=== PATIENT | female | born 1945 | race Caucasian/White ===

== ENCOUNTER → 2019-09-16 | Outpatient (CLI) | payer MEDICARE ==
[2019-07-11 13:30] VITALS: BP 136/93
[~2019-09-16] MED LIST: ONDANSETRON ODT8 MG PO
[2019-09-16 10:11] LABS: BASO # 0.1 (0.02-0.10); EOS # 0.3 (0.04-0.40); EOS % 4.7 % (1.0-5.0); HEMATOCRIT 44.8 % (37.0-47.0); HEMOGLOBIN 14.5 g/dL (12.5-16.0); LYMPH# 1.9 (1.50-4.00); MEAN CELL VOLUME 86 fl (78-100); MEAN CORPUSCULAR HEMOGLOBIN 28 pg (27-31); MEAN CORPUSCULAR HGB CONC 32 g/dL (33-37); MEAN PLATELET VOLUME 10.5 fl (7.4-10.4); MONO # 0.5 (0.20-0.80); NEU # 4.1 (1.40-6.50); PLATELET COUNT 273 K/mm3 (130-400); RED CELL DISTRIBUTION WIDTH 13.7 % (11.5-14.5)
[2019-09-16 10:20] LABS: POTASSIUM 4.2 mmol/L (3.5-5.1)
[2019-09-16 10:21] LABS: ALBUMIN 4.2 g/dL (3.4-4.8)
[2019-09-16 10:22] LABS: CALCIUM 9.7 mg/dL (8.3-10.5)
[2019-09-16 10:23] LABS: TOTAL PROTEIN 7.3 g/dL (6.2-8.1)
[2019-09-16 10:25] LABS: TOTAL BILIRUBIN 0.5 mg/dL (0.2-1.2)
== END ==
LOC: LAB 09:55
PROVIDERS: Family Medicine
DX: Z00.00 Encounter for general adult medical examination without abnormal findings (principal); I10 Essential (primary) hypertension

== ENCOUNTER → 2020-05-26 | Outpatient (CLI) | payer MEDICARE ==
[2019-07-11 13:30] VITALS: BP 136/93
== END ==
LOC: MAMMO 14:25
DX: Z12.31 Encounter for screening mammogram for malignant neoplasm of breast (principal)

== ENCOUNTER → 2020-10-05 | Outpatient (CLI) | payer MEDICARE ==
[2019-07-11 13:30] VITALS: BP 136/93
[2020-10-05 15:41] LABS: BASO # 0.1 (0.02-0.10); EOS # 0.3 (0.04-0.40); HEMOGLOBIN 14.1 g/dL (12.5-16.0); MEAN CELL VOLUME 87 fl (78-100); MEAN CORPUSCULAR HEMOGLOBIN 28 pg (27-31); MEAN CORPUSCULAR HGB CONC 32 g/dL (33-37); MEAN PLATELET VOLUME 10.3 fl (7.4-10.4); MONO # 0.7 (0.20-0.80); NEU # 5.6 (1.40-6.50); PLATELET COUNT 262 K/mm3 (130-400); RED BLOOD COUNT 5.07 M/mm3 (4.10-5.30); RED CELL DISTRIBUTION WIDTH 13.8 % (11.5-14.5); WHITE BLOOD COUNT 8.6 K/mm3 (4.8-10.8)
[2020-10-05 15:54] LABS: ALBUMIN 4.1 g/dL (3.4-4.8)
[2020-10-05 15:55] LABS: CALCIUM 9.4 mg/dL (8.3-10.5)
[2020-10-05 15:57] LABS: TOTAL PROTEIN 7.3 g/dL (6.2-8.1)
[2020-10-05 15:59] LABS: TOTAL BILIRUBIN 0.4 mg/dL (0.2-1.2)
== END ==
LOC: LAB 15:26
PROVIDERS: Family Medicine
DX: Z00.00 Encounter for general adult medical examination without abnormal findings (principal); E78.5 Hyperlipidemia, unspecified

== ENCOUNTER → 2020-10-12 | Outpatient (CLI) | payer MEDICARE ==
[2019-07-11 13:30] VITALS: BP 136/93
== END ==
LOC: MAMMO 07:12 → RAD 07:12 → MAMMO 07:30 → RAD 07:30
DX: K44.9 Diaphragmatic hernia without obstruction or gangrene (principal); K22.4 Dyskinesia of esophagus

== ENCOUNTER → 2020-10-15 | Outpatient (CLI) | payer MEDICARE ==
[2019-07-11 13:30] VITALS: BP 136/93
== END ==
LOC: RAD 10:00
DX: G93.89 Other specified disorders of brain (principal)
CPT/HCPCS: Q9967

== ENCOUNTER → 2020-10-19 | Day surgery (SDC) | payer MEDICARE ==
[2019-07-11 13:30] VITALS: BP 136/93
== END | disposition home or self-care (01) ==
LOC: MSO 09:10
DX: K31.7 Polyp of stomach and duodenum (principal); K44.9 Diaphragmatic hernia without obstruction or gangrene; K21.9 Gastro-esophageal reflux disease without esophagitis; K57.30 Diverticulosis of large intestine without perforation or abscess without bleeding; I10 Essential (primary) hypertension; M19.90 Unspecified osteoarthritis, unspecified site; L90.0 Lichen sclerosus et atrophicus; Z68.34 Body mass index [BMI] 34.0-34.9, adult; E66.9 Obesity, unspecified; Z80.0 Family history of malignant neoplasm of digestive organs; Z86.010 Personal history of colon polyps; Z79.899 Other long term (current) drug therapy; Z85.841 Personal history of malignant neoplasm of brain
CPT/HCPCS: 00813; J2704; J7120

== ENCOUNTER → 2021-01-15 | Outpatient (CLI) | payer MEDICARE ==
[2021-01-15 14:09] LABS: HEMATOCRIT 44.5 % (37.0-47.0); HEMOGLOBIN 14.6 g/dL (12.5-16.0); MEAN PLATELET VOLUME 10.6 fl (7.4-10.4); RED BLOOD COUNT 5.1 M/mm3 (4.10-5.30); RED CELL DISTRIBUTION WIDTH 13.3 % (11.5-14.5); WHITE BLOOD COUNT 9.8 K/mm3 (4.8-10.8)
[2021-01-15 14:21] LABS: POTASSIUM 4.4 mmol/L (3.5-5.1)
[2021-01-15 14:22] LABS: CALCIUM 9.4 mg/dL (8.3-10.5)
== END ==
LOC: LAB 13:49
PROVIDERS: Podiatrist Sports Medicine
DX: M20.12 Hallux valgus (acquired), left foot (principal)

== ENCOUNTER → 2021-02-16 | Outpatient (CLI) | payer MEDICARE ==
[2021-02-16 17:48] LABS: BASO # 0.04 (0.02-0.10); EOS # 0.12 (0.04-0.40); EOS % 1.2 % (1.0-5.0); HEMATOCRIT 42.9 % (37.0-47.0); LYMPH# 2.28 (1.50-4.00); MEAN CELL VOLUME 91 fl (78-100); MEAN CORPUSCULAR HEMOGLOBIN 30 pg (27-31); MEAN CORPUSCULAR HGB CONC 33 g/dL (33-37); MEAN PLATELET VOLUME 10.3 fl (7.4-10.4); MONO # 0.78 (0.20-0.80); NEU # 6.35 (1.40-6.50); PLATELET COUNT 301 K/mm3 (130-400); RED BLOOD COUNT 4.74 M/mm3 (4.10-5.30); RED CELL DISTRIBUTION WIDTH 13.3 % (11.5-14.5); WHITE BLOOD COUNT 9.6 K/mm3 (4.8-10.8)
[2021-02-16 17:58] LABS: ALBUMIN 3.9 g/dL (3.4-4.8); POTASSIUM 3.8 mmol/L (3.5-5.1)
[2021-02-16 17:59] LABS: CALCIUM 9.4 mg/dL (8.3-10.5)
[2021-02-16 18:01] LABS: TOTAL PROTEIN 7.1 g/dL (6.2-8.1)
[2021-02-16 18:02] LABS: TOTAL BILIRUBIN 0.6 mg/dL (0.2-1.2)
[2021-02-16 18:35] LABS: URINE APPEARANCE HAZY; URINE BILIRUBIN 2+ (NEGATIVE); URINE BLOOD NEGATIVE (NEGATIVE); URINE COLOR YELLOW; URINE GLUCOSE NEGATIVE (NEGATIVE); URINE KETONE NEGATIVE (NEGATIVE); URINE LEUKOCYTE ESTERASE TRACE (NEGATIVE); URINE MUCUS PRESENT (NOT PRESENT); URINE NITRATE NEGATIVE (NEGATIVE); URINE PROTEIN(semi-quant) TRACE mg/dL (NEGATIVE); URINE UROBILINOGEN NORMAL (NORMAL)
== END ==
LOC: LAB 17:32
PROVIDERS: Family Medicine
DX: R10.9 Unspecified abdominal pain (principal)

== ENCOUNTER → 2021-02-18 | Outpatient (CLI) | payer MEDICARE | LOC: RAD 09:24 | DX: K80.20 Calculus of gallbladder without cholecystitis without obstruction (principal); K44.9 Diaphragmatic hernia without obstruction or gangrene; J90 Pleural effusion, not elsewhere classified ==

== ENCOUNTER → 2021-03-16 | Outpatient (CLI) | payer MEDICARE ==
[2021-03-16 12:24] LABS: HEMATOCRIT 43.2 % (37.0-47.0); MEAN PLATELET VOLUME 10.6 fl (7.4-10.4); RED BLOOD COUNT 4.7 M/mm3 (4.10-5.30); RED CELL DISTRIBUTION WIDTH 13.6 % (11.5-14.5)
[2021-03-16 12:30] LABS: POTASSIUM 3.9 mmol/L (3.5-5.1)
== END ==
LOC: LAB 12:00
PROVIDERS: Podiatrist Sports Medicine
DX: M20.11 Hallux valgus (acquired), right foot (principal)

== ENCOUNTER → 2021-06-02 | Outpatient (CLI) | payer MEDICARE | LOC: MAMMO 15:04 | DX: Z12.31 Encounter for screening mammogram for malignant neoplasm of breast (principal) ==

== ENCOUNTER → 2021-07-08 | Outpatient (CLI) | payer MEDICARE | LOC: LAB 13:51 | DX: Z20.822 Contact with and (suspected) exposure to COVID-19 (principal) ==

== ENCOUNTER → 2021-09-22 | Outpatient (CLI) | payer MEDICARE | LOC: LAB 17:23 | DX: I10 Essential (primary) hypertension (principal); E66.9 Obesity, unspecified; M19.90 Unspecified osteoarthritis, unspecified site; Z20.822 Contact with and (suspected) exposure to COVID-19 ==

== ENCOUNTER → 2021-10-04 | Outpatient (CLI) | payer MEDICARE | LOC: MAMMO 13:51 | DX: M85.80 Other specified disorders of bone density and structure, unspecified site (principal) ==